=== PATIENT | female | born 1955 | race Caucasian/White ===

== ENCOUNTER 2020-01-25 12:00 | Day surgery (SDC) | payer BC ==
[2020-01-24 15:34] LABS: BASOPHILS % (AUTO) 0.6 % (0-1); EOSINOPHILS # (AUTO) 0.1 X10'3 (0-0.9); EOSINOPHILS % (AUTO) 2.1 % (0-6); LYMPHOCYTES # (AUTO) 1.5 X10'3 (1.1-4.8); LYMPHOCYTES % (AUTO) 25.8 % (21-51); MEAN CORPUSCULAR HEMOGLOBIN 27.7 PG (27.0-31.0); MEAN CORPUSCULAR HGB CONC 32.9 g/dL (33.0-36.5); MEAN CORPUSCULAR VOLUME 84.2 FL (78-98); MEAN PLATELET VOLUME 7.6 FL (7.4-10.4); MONOCYTES # (AUTO) 0.4 X10'3 (0-0.9); MONOCYTES % (AUTO) 6.6 % (2-12); NEUTROPHILS # (AUTO) 3.8 X10'3 (1.8-7.7); NEUTROPHILS % (AUTO) 64.9 % (42-75); PRE OP HEMATOCRIT 38.4 % (35.0-45.0); PRE OP HEMOGLOBIN 12.7 g/dL (12.0-16.0); PRE OP PLATELET COUNT 340 X10'3 (140-440); RED BLOOD COUNT 4.56 X10'6 (4.20-5.60); RED CELL DISTRIBUTION WIDTH 14.3 % (11.5-14.5)
[2020-01-24 15:38] LABS: ALBUMIN 3.6 G/DL (3.4-5.0); ALBUMIN/GLOBULIN RATIO 0.9 (1.1-1.5); ALKALINE PHOSPHATASE 73 IU/L (46-116); BLOOD UREA NITROGEN 20 MG/DL (7-18); BUN/CREATININE RATIO 29.9 (6.6-38.0); CALCIUM 9.2 MG/DL (8.5-10.1); CHLORIDE 105 MMOL/L (99-107); CREATININE 0.67 MG/DL (0.40-0.90); PRE OP ALT 25 U/L (30-65); PRE OP ANION GAP 6 (8-16); PRE OP AST 19 U/L (10-37); PRE OP BILIRUB, TOTAL 0.5 MG/DL (0.0-1.0); PRE OP GLUCOSE 124 MG/DL (70-104); PRE OP POTASSIUM 3.8 MMOL/L (3.4-5.1); PRE OP SODIUM 142 MMOL/L (135-145); TOTAL CARBON DIOXIDE 30.9 MMOL/L (24-32); TOTAL PROTEIN 7.7 G/DL (6.4-8.2); eGFR 89 ML/MIN
[~2020-01-25] VITALS: Ht 165.1 cm; Wt 72.6 kg
[2020-01-25] VITALS (11 sets, daily range): BP systolic 126–170; BP diastolic 82–100
[~2020-01-25 12:00] MED LIST: HYDR-4383 PO; IBUP-1985 PO; ceFAZolin 1GM/D5W- ADD-VANTAGE 50 ML IV ONE; famotidine 20mg tablet PO ONE; ringers solution, lacted 1,000 ML IV SCH
[2020-01-25] MEDS ORDERED: BUPIVAcaine/PF 2.5 mg/ml (0.25%) 30ml vial ONE (15:15)
[2020-01-25] MEDS ORDERED: cloNIDine hcl/PF 100mcg/ml inj ONE (16:06)
[2020-01-25] MEDS ORDERED: propofol inj 20 ML IV ONE (16:08)
[2020-01-25] MEDS ORDERED: midazolam 2 mg/2 ml injection ONE ×2 (16:08)
[2020-01-25] MEDS ORDERED: fentaNYL/PF 50MCG/1 ML 2ML syringe ONE (16:08)
[2020-01-25] MEDS ORDERED: ROPIVAcaine 0.5% (5mg/ml) 30ml vial ONE (16:10)
[2020-01-25] MEDS ORDERED: sevoflurane 250ml liquid IH ONE (16:12)
[2020-01-25] MEDS ORDERED: proCHLORperazine 10 MG/2 ml inj IV PRN (16:15)
[2020-01-25] MEDS ORDERED: meperidine/PF 25mg/ml syringe IV PRN ×3 (16:15)
[2020-01-25] MEDS ORDERED: ondansetron/PF 4mg/2ml inj IV PRN (16:15)
[2020-01-25] MEDS ORDERED: morphine 4 MG/ML inj SYRINge IV PRN (16:15)
[2020-01-25] MEDS ORDERED: morphine 2 MG/ML inj. syringe IV PRN (16:15)
[2020-01-25] MEDS ORDERED: ringers solution, lacted 1,000 ML IV SCH (16:15)
[2020-01-25] MEDS ORDERED: ondansetron/PF 4mg/2ml inj ONE (18:04)
[2020-01-25] MEDS ORDERED: dexamethasone sod phosphate 4mg/ml inj. ONE (18:04)
--- NOTE | 2020-01-25 18:21 | NUR ---
Received from OR via [facility], accompanied by Anesthesiologist DR JADE and report given by Anesthesiologist. PT DROWSY, DENIES PAIN, LEFT SHOULDER W/ISLAND DRSG COVERING INCISION CDI, LEFT ARM IN SLING. Addendum: 01/25/20 at 1829 by Malathi Rucker RN Amended: Links added.
[2020-01-25] MEDS ORDERED: HYDROcodone/acetaminophen 10/325mg tab PO PRN (18:25)
--- NOTE | 2020-01-25 20:11 | NUR ---
D/C INSTRUCTIONS GIVEN TO AND GONE OVER W/PT WHO VERBALIZED UNDERSTANDING, PT D/CD TO HOME VIA W/C TO PRIVATE VEHICLE W/O INCIDENT. Addendum: 01/25/20 at 2021 by Malathi Rucker RN Amended: Links added.
== END 2020-01-25 20:11 | disposition home or self-care (01) ==
LOC: PAS 12:00
PROVIDERS: ATTEND Orthopaedic Surgery
DX: T84.84XA Pain due to internal orthopedic prosthetic devices, implants and grafts, initial encounter (principal); M25.612 Stiffness of left shoulder, not elsewhere classified; Z98.890 Other specified postprocedural states; Z87.891 Personal history of nicotine dependence; G89.18 Other acute postprocedural pain; Z79.899 Other long term (current) drug therapy; Z72.89 Other problems related to lifestyle
CPT/HCPCS: 20680; 29823; 36415; 64415; 73060; 76000; 76942; 80053; 82948; 85025; 93005; J0690; J0735; J1100; J2250; J2405; J2704; J3010; J3490; J7120; A4565; A4618; A6449; A7000; J2795

== ENCOUNTER 2020-01-30 10:46 | Emergency (ER) | payer BC ==
[~2020-01-30] VITALS: Ht 165.1 cm; Wt 71.6 kg
[~2020-01-30 10:46] MED LIST changes: -ceFAZolin 1GM/D5W- ADD-VANTAGE 50 ML IV ONE; -famotidine 20mg tablet PO ONE; -ringers solution, lacted 1,000 ML IV SCH
[2020-01-30 11:37] LABS: BASOPHILS % (AUTO) 0.4 % (0-1); EOSINOPHILS # (AUTO) 0.1 X10'3 (0-0.9); HEMOGLOBIN 12.6 g/dl (12.0-16.0); LYMPHOCYTES # (AUTO) 1.3 X10'3 (1.1-4.8); LYMPHOCYTES % (AUTO) 16.7 % (21-51); MEAN CORPUSCULAR HEMOGLOBIN 27.8 PG (27.0-31.0); MEAN CORPUSCULAR HGB CONC 33.2 g/dL (33.0-36.5); MEAN CORPUSCULAR VOLUME 83.7 FL (78-98); MEAN PLATELET VOLUME 6.8 FL (7.4-10.4); MONOCYTES # (AUTO) 0.5 X10'3 (0-0.9); MONOCYTES % (AUTO) 6.2 % (2-12); NEUTROPHILS % (AUTO) 75.7 % (42-75); PLATELET COUNT 412 X10'3 (140-440); RED BLOOD COUNT 4.55 X10'6 (4.20-5.60); RED CELL DISTRIBUTION WIDTH 13.7 % (11.5-14.5); WHITE BLOOD COUNT 7.9 X10'3 (4.5-11.0)
[2020-01-30 11:51] LABS: ALANINE AMINOTRANSFERASE 23 U/L (12-78); ALBUMIN 3.2 G/DL (3.4-5.0); ALBUMIN/GLOBULIN RATIO 0.7 (1.1-1.5); ALKALINE PHOSPHATASE 73 IU/L (46-116); ANION GAP 10 (8-16); ASPARTATE AMINO TRANSFERASE 14 U/L (10-37); BILIRUBIN,TOTAL 0.6 MG/DL (0.1-1.0); BLOOD UREA NITROGEN 15 MG/DL (7-18); BUN/CREATININE RATIO 16.1 (6.6-38.0); CALCIUM 9.3 MG/DL (8.5-10.1); CHLORIDE 103 MMOL/L (99-107); CREATININE 0.93 MG/DL (0.40-0.90); GLUCOSE 172 MG/DL (70-104); POTASSIUM 3.4 MMOL/L (3.5-5.1); SODIUM 141 MMOL/L (135-145); TOTAL CARBON DIOXIDE 28.1 MMOL/L (24-32); TOTAL PROTEIN 7.7 G/DL (6.4-8.2); eGFR 61 ML/MIN
[2020-01-30] MEDS ORDERED: vancomycin/NS 1 GM ADD-VANTAGE 250 ML IV ONE (12:30)
[2020-01-30] MEDS ORDERED: SULF1TAB49 PO (12:31)
[2020-01-30 14:33] VITALS: BP 130/80
== END 2020-01-30 14:38 | disposition home or self-care (01) ==
LOC: ER 10:47
DX: T81.41XA Infection following a procedure, superficial incisional surgical site, initial encounter (principal); Z98.890 Other specified postprocedural states; Z79.2 Long term (current) use of antibiotics; Z79.899 Other long term (current) drug therapy; Y83.9 Surgical procedure, unspecified as the cause of abnormal reaction of the patient, or of later complication, without mention of misadventure at the time of the procedure; Y92.89 Other specified places as the place of occurrence of the external cause
CPT/HCPCS: 36415; 80053; 85025; 87070; 96365; 96366; 99284; J3370

== ENCOUNTER 2020-05-16 08:32 | Inpatient (IN) | payer BC ==
[~2020-05-16] VITALS: Ht 165.1 cm; Wt 72.9 kg
[2020-05-16] VITALS (24 sets, daily range): BP systolic 125–174; BP diastolic 63–99
[2020-05-16] MEDS ORDERED: famotidine 20mg tablet PO ONE (09:25)
[2020-05-16] MEDS ORDERED: ringers solution, lacted 1,000 ML IV SCH ×2 (09:25→11:05)
[2020-05-16 10:07] LABS: BASOPHILS % (AUTO) 0.5 % (0-1); EOSINOPHILS # (AUTO) 0.1 X10'3 (0-0.9); EOSINOPHILS % (AUTO) 1.7 % (0-6); HEMATOCRIT 40.7 % (35.0-45.0); HEMOGLOBIN 13.8 g/dl (12.0-16.0); LYMPHOCYTES # (AUTO) 1.3 X10'3 (1.1-4.8); LYMPHOCYTES % (AUTO) 21.5 % (21-51); MEAN CORPUSCULAR HEMOGLOBIN 28.2 PG (27.0-31.0); MEAN CORPUSCULAR HGB CONC 33.9 g/dL (33.0-36.5); MEAN CORPUSCULAR VOLUME 83.1 FL (78-98); MEAN PLATELET VOLUME 7.1 FL (7.4-10.4); MONOCYTES # (AUTO) 0.4 X10'3 (0-0.9); MONOCYTES % (AUTO) 6.4 % (2-12); NEUTROPHILS # (AUTO) 4.4 X10'3 (1.8-7.7); NEUTROPHILS % (AUTO) 69.9 % (42-75); PLATELET COUNT 359 X10'3 (140-440); RED CELL DISTRIBUTION WIDTH 13.5 % (11.5-14.5); WHITE BLOOD COUNT 6.3 X10'3 (4.5-11.0)
[2020-05-16] MEDS ORDERED: cloNIDine hcl/PF 100mcg/ml inj ONE (10:08)
[2020-05-16] MEDS ORDERED: fentaNYL/PF 50MCG/1 ML 2ML syringe ONE (10:13)
[2020-05-16] MEDS ORDERED: sevoflurane 250ml liquid IH ONE (10:15)
[2020-05-16] MEDS ORDERED: midazolam 2 mg/2 ml injection ONE (10:18)
[2020-05-16] MEDS ORDERED: LIDOcaine 2% 5ml jelly ONE (10:18)
[2020-05-16 10:32] LABS: ALANINE AMINOTRANSFERASE 28 U/L (12-78); ALBUMIN 3.7 G/DL (3.4-5.0); ALBUMIN/GLOBULIN RATIO 0.8 (1.1-1.5); ALKALINE PHOSPHATASE 104 IU/L (46-116); ANION GAP 9 (8-16); ASPARTATE AMINO TRANSFERASE 22 U/L (10-37); BILIRUBIN,TOTAL 0.5 MG/DL (0.1-1.0); BLOOD UREA NITROGEN 17 MG/DL (7-18); BUN/CREATININE RATIO 24.6 (6.6-38.0); C-REACTIVE PROTEIN 2.25 MG/DL (0.0-0.5); CALCIUM 9.7 MG/DL (8.5-10.1); CHLORIDE 105 MMOL/L (99-107); CREATININE 0.69 MG/DL (0.40-0.90); GLUCOSE 107 MG/DL (70-104); POTASSIUM 3.7 MMOL/L (3.5-5.1); SODIUM 142 MMOL/L (135-145); TOTAL CARBON DIOXIDE 28.5 MMOL/L (24-32); TOTAL PROTEIN 8.2 G/DL (6.4-8.2); eGFR 86 ML/MIN
[2020-05-16] MEDS ORDERED: dexamethasone sod phosphate 4mg/ml inj. ONE (10:53)
[2020-05-16] MEDS ORDERED: ondansetron/PF 4mg/2ml inj ONE (10:53)
[2020-05-16] MEDS ORDERED: LIDOcaine 2% (20mg/ml) 5ml vial ONE (10:53)
[2020-05-16] MEDS ORDERED: rocuronium 10mg/ml inj IV ONE (10:53)
[2020-05-16] MEDS ORDERED: LIDOcaine 1%/PF 5ML 10 MG/ML VIAL ONE (10:53)
[2020-05-16] MEDS ORDERED: ROPIVAcaine 0.5% (5mg/ml) 30ml vial ONE (10:53)
[2020-05-16] MEDS ORDERED: 0.9 % SODIUM CHLORIDE 10 ML VIAL ONE (10:53)
[2020-05-16] MEDS ORDERED: ePHEDrine 50MG/ML INJ. ONE (10:53)
[2020-05-16] MEDS ORDERED: propofol inj 20 ML IV ONE (10:53)
[2020-05-16] MEDS ORDERED: ceFAZolin 1000mg inj ONE ×2 (11:03)
[2020-05-16] MEDS ORDERED: vancomycin 1,000mg inj ONE (11:03)
[2020-05-16] MEDS ORDERED: meperidine/PF 25mg/ml syringe IV PRN ×3 (11:05)
[2020-05-16] MEDS ORDERED: ondansetron/PF 4mg/2ml inj IV PRN ×2 (11:05→12:35)
[2020-05-16] MEDS ORDERED: morphine 4 MG/ML inj SYRINge IV PRN (11:05)
[2020-05-16] MEDS ORDERED: acetaminophen 1,000mg/100ml IV 100 ML IV PRN (11:05)
[2020-05-16] MEDS ORDERED: proCHLORperazine 10 MG/2 ml inj IV PRN (11:05)
[2020-05-16] MEDS ORDERED: morphine 2 MG/ML inj. syringe IV PRN (11:05)
[2020-05-16] MEDS ORDERED: glycopyrrolate 0.2mg/ml inj ONE (11:46)
[2020-05-16] MEDS ORDERED: neostigmine methylsulfate 1 MG/ML 10ml vial ONE (11:46)
--- NOTE | 2020-05-16 12:01 | NUR ---
Received from OR via BED, accompanied by Anesthesiologist DR SHIPMAN and report given by Anesthesiologist. PT DROWSY, DENIES PAIN, LEFT SHOULDER W/DRSG, CDI, SHOULDER WRAP, WOUND VAC W/SETTINGS 125MMHG LCS W/ S/S DRAINAGE IN TUBING. Addendum: 05/16/20 at 1408 by Malathi Rucker RN Amended: Links added.
[2020-05-16] MEDS ORDERED: diphenhydrAMINE 25mg capsule PO PRN ×2 (12:35)
[2020-05-16] MEDS ORDERED: tranexamic acid inj. 730 MG in normal saline 100ml IV soln 100 ML IV ONE ×2 (12:35→15:50)
[2020-05-16] MEDS ORDERED: HYDROmorphone 1 mg/ml syringe IV PRN (12:35)
[2020-05-16] MEDS ORDERED: bisacodyl 10mg suppository rectal RC PRN (12:35)
[2020-05-16] MEDS ORDERED: acetaminophen 325mg tablet PO PRN (12:35)
[2020-05-16] MEDS ORDERED: HYDROmorphone inj. 0.5 MG/0.5 ML DISP.SYRIN IV PRN (12:35)
[2020-05-16] MEDS ORDERED: magnesium hydroxide 30ml (MOM) UD suspension PO PRN (12:35)
[2020-05-16] MEDS: acetaminophen 325mg tablet PO SCH ×2 (14:00→20:01)
--- NOTE | 2020-05-16 14:21 | NUR ---
Report called to receiving nurse. Transferred via BED, 2 BAGS OF PERSONAL Belongings SENT W/PT TO ROOM 345B, RECEIVING RN AT BEDSIDE TO RECEIVE PT. Special Issues communicated to receiving nurse. YES. Addendum: 05/16/20 at 1430 by Malathi Rucker RN Amended: Links added.
--- NOTE | 2020-05-16 15:49 | NUR ---
Called Dr Menjivar and he does not want patient to receive tranexamic acid dose. Also, received orders for Wound Vac to be 125mmHg settings.
[2020-05-16] MEDS: ceFAZolin/D5W- 1GM premix 50 ML IV SCH (16:14)
--- NOTE | 2020-05-16 18:21 | NUR ---
Problems reprioritized. Patient report given, questions answered & plan of care reviewed with Luca SMITH.
[2020-05-16] MEDS: sennosides 8.6mg tablet PO SCH (20:00)
[2020-05-16] MEDS: potassium cl 20mEq in 1/2 NS 1,000 ML IV SCH ×2 (20:02→20:35)
[2020-05-16] MEDS: vancomycin/NS 1 GM ADD-VANTAGE 250 ML IV SCH (22:21)
[2020-05-17 00:07] VITALS: BP 120/71
[2020-05-17] MEDS: ceFAZolin/D5W- 1GM premix 50 ML IV SCH ×2 (00:47→08:15)
[2020-05-17] MEDS: acetaminophen 325mg tablet PO SCH ×4 (03:54→19:46)
[2020-05-17 04:00] VITALS: BP 125/68
[2020-05-17] MEDS: potassium cl 20mEq in 1/2 NS 1,000 ML IV SCH (04:35)
[2020-05-17 06:10] LABS: BASOPHILS % (AUTO) 0.1 % (0-1); EOSINOPHILS % (AUTO) 0 % (0-6); HEMATOCRIT 37.1 % (35.0-45.0); HEMOGLOBIN 12.4 g/dl (12.0-16.0); LYMPHOCYTES # (AUTO) 0.9 X10'3 (1.1-4.8); LYMPHOCYTES % (AUTO) 10.8 % (21-51); MEAN CORPUSCULAR HEMOGLOBIN 27.7 PG (27.0-31.0); MEAN CORPUSCULAR HGB CONC 33.3 g/dL (33.0-36.5); MEAN CORPUSCULAR VOLUME 83.1 FL (78-98); MEAN PLATELET VOLUME 7.1 FL (7.4-10.4); MONOCYTES # (AUTO) 0.3 X10'3 (0-0.9); MONOCYTES % (AUTO) 4.1 % (2-12); NEUTROPHILS # (AUTO) 6.8 X10'3 (1.8-7.7); PLATELET COUNT 374 X10'3 (140-440); RED BLOOD COUNT 4.46 X10'6 (4.20-5.60); RED CELL DISTRIBUTION WIDTH 13.6 % (11.5-14.5)
[2020-05-17 06:26] LABS: ANION GAP 9 (8-16); CHLORIDE 106 MMOL/L (99-107); POTASSIUM 4.4 MMOL/L (3.5-5.1); SODIUM 142 MMOL/L (135-145); TOTAL CARBON DIOXIDE 27.2 MMOL/L (24-32)
--- NOTE | 2020-05-17 06:32 | NUR ---
reported to days. noted pt's iv needs to be replaced. no pain noted. pt can wiggle and feel fingers.
[2020-05-17 07:00] VITALS: BP 124/66
[2020-05-17] MEDS: oxyCODONE IR 5mg (immed. release) tablet PO PRN ×3 (08:26→19:45)
[2020-05-17 09:46] LABS: ALANINE AMINOTRANSFERASE 22 U/L (12-78); ALBUMIN 3.2 G/DL (3.4-5.0); ALBUMIN/GLOBULIN RATIO 0.8 (1.1-1.5); ALKALINE PHOSPHATASE 89 IU/L (46-116); ASPARTATE AMINO TRANSFERASE 20 U/L (10-37); BILIRUBIN,TOTAL 0.7 MG/DL (0.1-1.0); BLOOD UREA NITROGEN 12 MG/DL (7-18); BUN/CREATININE RATIO 15.6 (6.6-38.0); CALCIUM 9.1 MG/DL (8.5-10.1); CREATININE 0.77 MG/DL (0.40-0.90); GLUCOSE 149 MG/DL (70-104); TOTAL PROTEIN 7.1 G/DL (6.4-8.2); eGFR 76 ML/MIN
--- NOTE | 2020-05-17 11:27 | NUR ---
PICC LINE INFORMATION: REF: [id number] LOT: [id number] EXP: 01/30/2021 NOTIFIED RN AND LAB OF LINE PLACEMENT
[2020-05-17 12:00] VITALS: BP 148/76
[2020-05-17] MEDS: vancomycin/NS 1 GM ADD-VANTAGE 250 ML IV SCH ×2 (14:51→23:26)
--- NOTE | 2020-05-17 15:27 | NUR ---
Pt admit DX L humerus osteomyelitis s/p debridement w/ vac; plans to return to OR tomorrow per pt during RD visit today. PO 100% first regular meal last night w/ 50% breakfast this morning; reports good appetite at this time. Pt seen by RD for written/verbal high protein ed w/ RD contact information provided. Pt is agreeable to traci-yadira PATEL; notified. Addendum: 05/17/20 at [address] Amended: Links added.
[2020-05-17] MEDS: CefTRIAXone 2gm/D5W 50ml BAG 50 ML IV SCH (17:45)
[2020-05-17 19:28] VITALS: BP 136/66
[2020-05-17] MEDS: lactobacillus rhamnosus 10,000 MMU CELLS/CAPSULE PO SCH (19:46)
[2020-05-17] MEDS: sennosides 8.6mg tablet PO SCH (21:10)
[2020-05-17] MEDS ORDERED: VANCOMYCIN LEVEL IV ONE (22:30)
[2020-05-17 23:09] VITALS: BP 122/62
[2020-05-18] VITALS (17 sets, daily range): BP systolic 116–153; BP diastolic 67–98
[2020-05-18] MEDS: acetaminophen 325mg tablet PO SCH ×2 (03:00→07:57)
[2020-05-18] MEDS: oxyCODONE IR 5mg (immed. release) tablet PO PRN (03:35)
--- NOTE | 2020-05-18 06:30 | NUR ---
Patient in room [facility]. I have received report from Ap SMITH and had the opportunity to ask questions and assume patient care.
[2020-05-18 06:38] LABS: BASOPHILS % (AUTO) 0.5 % (0-1); EOSINOPHILS # (AUTO) 0.1 X10'3 (0-0.9); EOSINOPHILS % (AUTO) 1.2 % (0-6); LYMPHOCYTES # (AUTO) 2.3 X10'3 (1.1-4.8); LYMPHOCYTES % (AUTO) 31.8 % (21-51); MEAN CORPUSCULAR HEMOGLOBIN 27.8 PG (27.0-31.0); MEAN CORPUSCULAR HGB CONC 33.3 g/dL (33.0-36.5); MEAN CORPUSCULAR VOLUME 83.2 FL (78-98); MEAN PLATELET VOLUME 7.4 FL (7.4-10.4); MONOCYTES # (AUTO) 0.4 X10'3 (0-0.9); MONOCYTES % (AUTO) 6.2 % (2-12); NEUTROPHILS # (AUTO) 4.3 X10'3 (1.8-7.7); NEUTROPHILS % (AUTO) 60.3 % (42-75); PLATELET COUNT 318 X10'3 (140-440); RED BLOOD COUNT 3.97 X10'6 (4.20-5.60); RED CELL DISTRIBUTION WIDTH 13.2 % (11.5-14.5); WHITE BLOOD COUNT 7.2 X10'3 (4.5-11.0)
[2020-05-18 06:56] LABS: ALANINE AMINOTRANSFERASE 19 U/L (12-78); ALBUMIN 2.8 G/DL (3.4-5.0); ALBUMIN/GLOBULIN RATIO 0.8 (1.1-1.5); ALKALINE PHOSPHATASE 73 IU/L (46-116); ANION GAP 6 (8-16); ASPARTATE AMINO TRANSFERASE 15 U/L (10-37); BILIRUBIN,TOTAL 0.4 MG/DL (0.1-1.0); BLOOD UREA NITROGEN 18 MG/DL (7-18); BUN/CREATININE RATIO 26.1 (6.6-38.0); CALCIUM 8.5 MG/DL (8.5-10.1); CHLORIDE 109 MMOL/L (99-107); CREATININE 0.69 MG/DL (0.40-0.90); GLUCOSE 96 MG/DL (70-104); POTASSIUM 3.6 MMOL/L (3.5-5.1); SODIUM 144 MMOL/L (135-145); TOTAL CARBON DIOXIDE 29.5 MMOL/L (24-32); TOTAL PROTEIN 6.3 G/DL (6.4-8.2); eGFR 86 ML/MIN
[2020-05-18] MEDS: lactobacillus rhamnosus 10,000 MMU CELLS/CAPSULE PO SCH ×2 (07:56→19:45)
[2020-05-18] MEDS: CefTRIAXone 2gm/D5W 50ml BAG 50 ML IV SCH (07:57)
[2020-05-18] MEDS: VANCOmycin 1250MG/NS 250ml Bag 250 ML IV SCH ×2 (11:17→23:12)
[2020-05-18] MEDS ORDERED: sevoflurane 250ml liquid IH ONE (12:36)
[2020-05-18] MEDS ORDERED: fentaNYL/PF 50MCG/1 ML 2ML syringe ONE ×2 (12:56→13:54)
[2020-05-18] MEDS ORDERED: LIDOcaine 2% (20mg/ml) 5ml vial ONE (12:56)
[2020-05-18] MEDS ORDERED: propofol inj 20 ML IV ONE (12:56)
[2020-05-18] MEDS ORDERED: dexamethasone sod phosphate 4mg/ml inj. ONE (12:56)
[2020-05-18] MEDS ORDERED: ondansetron/PF 4mg/2ml inj ONE (12:56)
[2020-05-18] MEDS ORDERED: ondansetron/PF 4mg/2ml inj IV PRN (13:10)
[2020-05-18] MEDS ORDERED: ringers solution, lacted 1,000 ML IV SCH (13:10)
[2020-05-18] MEDS ORDERED: morphine 4 MG/ML inj SYRINge IV PRN (13:10)
[2020-05-18] MEDS ORDERED: fentaNYL/PF 50MCG/1 ML 2ML syringe IV PRN ×2 (13:10)
[2020-05-18] MEDS ORDERED: labetalol 20mg/4ml (5mg/ml) syringe IV PRN (13:10)
[2020-05-18] MEDS ORDERED: hydrALAZINE 20mg/ml inj. IV PRN (13:10)
[2020-05-18] MEDS ORDERED: morphine 2 MG/ML inj. syringe IV PRN (13:10)
[2020-05-18] MEDS ORDERED: vancomycin 1,000mg inj ONE (13:21)
[2020-05-18] MEDS ORDERED: ketorolac trometh. 30mg/ml inj. ONE (13:51)
[2020-05-18] MEDS ORDERED: morphine 10mg/ml inj. ONE (14:34)
--- NOTE | 2020-05-18 14:52 | NUR ---
FROM OR ON BED WITH DR CIFUENTES AT SIDE. VSS. IV TO RT UPPER ARM IS A PICC LINE ABD THE SITE IS CLEAR. LEFT FINGERS MOVE WELL. PULSE IS PALPABLE AND FINGERS ARE WARM WITH BRISK CAP REFILL. DSG CDI TO LEFT ARM. EXTERNAL FIXATOR PRESENT WITH ELIJAH DRAIN. SLIGHTLY BLOODY DRAINAGE AND HOLDING A CHARGE WELL. NO RESP DISTRESS AND NO CO PAIN. Addendum: 05/18/20 at 1517 by Kari Bhatti RN Amended: Links added.
--- NOTE | 2020-05-18 15:42 | NUR ---
REPORT TO [place] ON SURGICAL FLOOR. PT CONTINUES TO DO WELL. NO PAIN, VSS, IV PATENT. DSG CDI. FINGERS WARM, MOVE WELL, BRISK CAP REFILL.
--- NOTE | 2020-05-18 15:52 | NUR ---
TRANSPORTED TO SURGICAL FLOOR WITHOUT INCIDENT. VSS, IV CLEAR. NO PAIN, CIRC CHECKS THE SAME TO LEFT HAND. ELIJAH NOT EMPTIED. DC'D WOUND VAC SENT TO FLOOR WITH PT.
--- NOTE | 2020-05-18 18:33 | NUR ---
Problems reprioritized. Patient report given, questions answered & plan of care reviewed with Kay SMITH.
[2020-05-18] MEDS: sennosides 8.6mg tablet PO SCH (19:45)
[2020-05-19] VITALS: BP 134/71
[2020-05-19] MEDS: oxyCODONE IR 5mg (immed. release) tablet PO PRN ×4 (03:52→18:11)
[2020-05-19 04:00] VITALS: BP 143/63
[2020-05-19 05:50] LABS: BASOPHILS % (AUTO) 0.3 % (0-1); EOSINOPHILS % (AUTO) 0.1 % (0-6); HEMATOCRIT 32.6 % (35.0-45.0); HEMOGLOBIN 10.9 g/dl (12.0-16.0); LYMPHOCYTES # (AUTO) 1.4 X10'3 (1.1-4.8); LYMPHOCYTES % (AUTO) 15.5 % (21-51); MEAN CORPUSCULAR HGB CONC 33.4 g/dL (33.0-36.5); MEAN PLATELET VOLUME 7.7 FL (7.4-10.4); MONOCYTES # (AUTO) 0.6 X10'3 (0-0.9); MONOCYTES % (AUTO) 7.4 % (2-12); NEUTROPHILS # (AUTO) 6.8 X10'3 (1.8-7.7); NEUTROPHILS % (AUTO) 76.7 % (42-75); PLATELET COUNT 299 X10'3 (140-440); RED BLOOD COUNT 3.88 X10'6 (4.20-5.60); RED CELL DISTRIBUTION WIDTH 13.3 % (11.5-14.5); WHITE BLOOD COUNT 8.8 X10'3 (4.5-11.0)
[2020-05-19 06:01] LABS: ALANINE AMINOTRANSFERASE 27 U/L (12-78); ALBUMIN 2.7 G/DL (3.4-5.0); ALBUMIN/GLOBULIN RATIO 0.8 (1.1-1.5); ALKALINE PHOSPHATASE 72 IU/L (46-116); ANION GAP 7 (8-16); ASPARTATE AMINO TRANSFERASE 22 U/L (10-37); BILIRUBIN,TOTAL 0.4 MG/DL (0.1-1.0); BLOOD UREA NITROGEN 17 MG/DL (7-18); BUN/CREATININE RATIO 22.7 (6.6-38.0); CALCIUM 8.9 MG/DL (8.5-10.1); CHLORIDE 106 MMOL/L (99-107); CREATININE 0.75 MG/DL (0.40-0.90); GLUCOSE 119 MG/DL (70-104); POTASSIUM 3.9 MMOL/L (3.5-5.1); SODIUM 142 MMOL/L (135-145); TOTAL CARBON DIOXIDE 28.8 MMOL/L (24-32); TOTAL PROTEIN 6.1 G/DL (6.4-8.2); eGFR 78 ML/MIN
--- NOTE | 2020-05-19 06:12 | NUR ---
Problems reprioritized. Patient report given, questions answered & plan of care reviewed with SARAH Mcnair.
[2020-05-19 08:00] VITALS: BP 123/70
[2020-05-19] MEDS: lactobacillus rhamnosus 10,000 MMU CELLS/CAPSULE PO SCH ×2 (08:03→19:10)
[2020-05-19] MEDS: CefTRIAXone 2gm/D5W 50ml BAG 50 ML IV SCH (08:04)
[2020-05-19] MEDS: ibuprofen 200mg tablet PO PRN (08:04)
[2020-05-19 11:00] VITALS: BP 152/66
[2020-05-19] MEDS: VANCOmycin 1250MG/NS 250ml Bag 250 ML IV SCH ×2 (11:48→23:30)
[2020-05-19] MEDS: acetaminophen 325mg tablet PO PRN ×2 (11:48→18:12)
[2020-05-19] MEDS: sennosides 8.6mg tablet PO SCH (19:11)
[2020-05-19 19:30] VITALS: BP 153/75
[2020-05-19] MEDS ORDERED: VANCOMYCIN LEVEL IV ONE (22:30)
[2020-05-20] MEDS: oxyCODONE IR 5mg (immed. release) tablet PO PRN ×4 (00:50→17:19)
[2020-05-20] MEDS: acetaminophen 325mg tablet PO PRN ×2 (04:08→17:25)
--- NOTE | 2020-05-20 06:30 | NUR ---
Patient in room [facility]. I have received report from SARAH Juarez and had the opportunity to ask questions and assume patient care.
--- NOTE | 2020-05-20 06:36 | NUR ---
Problems reprioritized. Patient report given, questions answered & plan of care reviewed with Vicky SMITH. Addendum: 05/20/20 at 0637 by Ann Johnston RN Amended: Links added.
[2020-05-20 07:18] LABS: ALANINE AMINOTRANSFERASE 41 U/L (12-78); ALBUMIN 2.7 G/DL (3.4-5.0); ALBUMIN/GLOBULIN RATIO 0.8 (1.1-1.5); ALKALINE PHOSPHATASE 70 IU/L (46-116); ANION GAP 7 (8-16); ASPARTATE AMINO TRANSFERASE 26 U/L (10-37); BILIRUBIN,TOTAL 0.4 MG/DL (0.1-1.0); BLOOD UREA NITROGEN 14 MG/DL (7-18); BUN/CREATININE RATIO 21.5 (6.6-38.0); CALCIUM 8.6 MG/DL (8.5-10.1); CHLORIDE 109 MMOL/L (99-107); CREATININE 0.65 MG/DL (0.40-0.90); GLUCOSE 92 MG/DL (70-104); POTASSIUM 3.7 MMOL/L (3.5-5.1); SODIUM 144 MMOL/L (135-145); TOTAL CARBON DIOXIDE 28.1 MMOL/L (24-32); eGFR > 90 ML/MIN
[2020-05-20 07:54] VITALS: BP 124/73
[2020-05-20] MEDS: CefTRIAXone 2gm/D5W 50ml BAG 50 ML IV SCH (08:03)
[2020-05-20] MEDS: lactobacillus rhamnosus 10,000 MMU CELLS/CAPSULE PO SCH ×2 (08:03→20:54)
[2020-05-20] MEDS: VANCOmycin 1250MG/NS 250ml Bag 250 ML IV SCH ×2 (11:21→23:18)
[2020-05-20 12:00] VITALS: BP 154/79
--- NOTE | 2020-05-20 18:13 | NUR ---
Problems reprioritized. Patient report given, questions answered & plan of care reviewed with SARAH Juarez.
[2020-05-20 20:00] VITALS: BP 136/72
[2020-05-20] MEDS: ibuprofen 200mg tablet PO PRN (20:54)
[2020-05-20] MEDS: sennosides 8.6mg tablet PO SCH (20:54)
[2020-05-21] VITALS: BP 145/65
--- NOTE | 2020-05-21 06:45 | NUR ---
Problems reprioritized. Patient report given, questions answered & plan of care reviewed with Lianne SMITH.
--- NOTE | 2020-05-21 06:46 | NUR ---
Problems reprioritized. Patient report given, questions answered & plan of care reviewed with Lianne Wick. Addendum: 05/21/20 at 0650 by Ann Johnston RN Amended: Links added.
--- NOTE | 2020-05-21 06:59 | NUR ---
Patient in room [facility]. I have received report from Ann SMITH and had the opportunity to ask questions and assume patient care.
[2020-05-21 07:08] LABS: ALANINE AMINOTRANSFERASE 35 U/L (12-78); ALBUMIN 2.8 G/DL (3.4-5.0); ALBUMIN/GLOBULIN RATIO 0.8 (1.1-1.5); ALKALINE PHOSPHATASE 73 IU/L (46-116); ANION GAP 5 (8-16); ASPARTATE AMINO TRANSFERASE 20 U/L (10-37); BILIRUBIN,TOTAL 0.4 MG/DL (0.1-1.0); BLOOD UREA NITROGEN 12 MG/DL (7-18); CALCIUM 8.8 MG/DL (8.5-10.1); CHLORIDE 109 MMOL/L (99-107); CREATININE 0.63 MG/DL (0.40-0.90); GLUCOSE 93 MG/DL (70-104); POTASSIUM 3.7 MMOL/L (3.5-5.1); SODIUM 143 MMOL/L (135-145); TOTAL CARBON DIOXIDE 29.4 MMOL/L (24-32); TOTAL PROTEIN 6.4 G/DL (6.4-8.2); eGFR > 90 ML/MIN
[2020-05-21 08:00] VITALS: BP 139/73
[2020-05-21] MEDS: lactobacillus rhamnosus 10,000 MMU CELLS/CAPSULE PO SCH ×2 (08:46→20:27)
[2020-05-21] MEDS: CefTRIAXone 2gm/D5W 50ml BAG 50 ML IV SCH (08:46)
[2020-05-21 12:00] VITALS: BP 143/70
[2020-05-21] MEDS: VANCOmycin 1250MG/NS 250ml Bag 250 ML IV SCH ×2 (12:21→22:57)
--- NOTE | 2020-05-21 13:42 | NUR ---
initial: 75-100% PO intake reports good appetite. Pt admit dx L humerus osteomyelitis s/p debridement; s/p debridement 05/18. Recommend: 1. continue regular diet 2. bowel care as needed 3. wt per rx Addendum: 05/21/20 at [address] Amended: Links added.
[2020-05-21] MEDS: ibuprofen 200mg tablet PO PRN (15:29)
--- NOTE | 2020-05-21 15:39 | NUR ---
Called Dr Gleason regarding wound care orders for pt's hardware and pt's complain of right foot pain. Left a message on his cell phone and waited to get orders. NO response. Charge nurse aware of events. recommended to call answering services to get a hold of him. Pt complaining of right foot pain, pulses are intact, pink skin, capillary refill <.03, pt feels she slept wrong and hurt her foot. Hard to walk on it.
--- NOTE | 2020-05-21 18:52 | NUR ---
Patient in room [facility]. I have received report from Pat RN and had the opportunity to ask questions and assume patient care.
[2020-05-21 19:30] VITALS: BP 162/83
--- NOTE | 2020-05-21 19:30 | NUR ---
pt states she feels like she was once told she had plantar faciatitis; states she does wear flip flops Addendum: 05/22/20 at 0102 by Lori Yadav RN Amended: Links added.
--- NOTE | 2020-05-21 19:30 | NUR ---
pt aware to call for assistance when using the bedside commode Addendum: 05/22/20 at 0102 by Lori Yadav RN Amended: Links added.
[2020-05-21] MEDS: sennosides 8.6mg tablet PO SCH (20:28)
[2020-05-21] MEDS: acetaminophen 325mg tablet PO PRN (22:00)
[2020-05-22] VITALS: BP 146/64
[2020-05-22 05:59] LABS: ALANINE AMINOTRANSFERASE 50 U/L (12-78); ALBUMIN 2.9 G/DL (3.4-5.0); ALBUMIN/GLOBULIN RATIO 0.7 (1.1-1.5); ALKALINE PHOSPHATASE 84 IU/L (46-116); ANION GAP 5 (8-16); ASPARTATE AMINO TRANSFERASE 32 U/L (10-37); BILIRUBIN,TOTAL 0.5 MG/DL (0.1-1.0); BLOOD UREA NITROGEN 11 MG/DL (7-18); BUN/CREATININE RATIO 15.5 (6.6-38.0); CALCIUM 9.4 MG/DL (8.5-10.1); CHLORIDE 106 MMOL/L (99-107); CREATININE 0.71 MG/DL (0.40-0.90); GLUCOSE 108 MG/DL (70-104); POTASSIUM 3.7 MMOL/L (3.5-5.1); SODIUM 141 MMOL/L (135-145); TOTAL CARBON DIOXIDE 29.6 MMOL/L (24-32); TOTAL PROTEIN 6.8 G/DL (6.4-8.2); eGFR 83 ML/MIN
--- NOTE | 2020-05-22 06:31 | NUR ---
Patient in room [facility]. I have received report from Pat RN and had the opportunity to ask questions and assume patient care.
[2020-05-22 07:18] VITALS: BP 148/90
[2020-05-22] MEDS: CefTRIAXone 2gm/D5W 50ml BAG 50 ML IV SCH (07:49)
[2020-05-22] MEDS: lactobacillus rhamnosus 10,000 MMU CELLS/CAPSULE PO SCH (07:49)
[2020-05-22] MEDS: acetaminophen 325mg tablet PO PRN (07:50)
[2020-05-22 08:34] LABS: BASOPHILS # (AUTO) 0.1 X10'3 (0-0.2); BASOPHILS % (AUTO) 0.7 % (0-1); EOSINOPHILS # (AUTO) 0.3 X10'3 (0-0.9); HEMATOCRIT 34.9 % (35.0-45.0); HEMOGLOBIN 11.7 g/dl (12.0-16.0); LYMPHOCYTES # (AUTO) 1.4 X10'3 (1.1-4.8); MEAN CORPUSCULAR HEMOGLOBIN 28.2 PG (27.0-31.0); MEAN CORPUSCULAR HGB CONC 33.6 g/dL (33.0-36.5); MEAN CORPUSCULAR VOLUME 83.9 FL (78-98); MEAN PLATELET VOLUME 7.4 FL (7.4-10.4); MONOCYTES # (AUTO) 0.7 X10'3 (0-0.9); MONOCYTES % (AUTO) 8.2 % (2-12); NEUTROPHILS # (AUTO) 5.5 X10'3 (1.8-7.7); NEUTROPHILS % (AUTO) 69.1 % (42-75); PLATELET COUNT 322 X10'3 (140-440); RED BLOOD COUNT 4.17 X10'6 (4.20-5.60); RED CELL DISTRIBUTION WIDTH 13.2 % (11.5-14.5)
[2020-05-22] MEDS: VANCOmycin 1250MG/NS 250ml Bag 250 ML IV SCH (11:51)
[2020-05-22 12:00] VITALS: BP 151/92
[2020-05-22] MEDS: ibuprofen 200mg tablet PO PRN (14:20)
--- NOTE | 2020-05-22 17:00 | NUR ---
Pt Dc to home with . pt is A & O x4, in no apparent distress. Pt educated by Dr Menjivar regarding cleaning her external hardware. Pt reviewed and spoke to [facility] directly about her outpatient IV treatment. Pt aware and got all of her appointments schedule. Pt will also get HH to come out and assist her with treatment. Since HH was not able to schedule an appointment right aware, pt got an appointment to go to wound care on Thursday 05/24 at 0830 for care. Pt given her DC orders and phone numbers to call schedule followup appointments. Pt's went home with a PICC two lumen on her right upper arm. Pt verbalizes understanding of all DC orders and is able to teach back details. Pt got her medications from pharmacy, belongings were packed and she was wheeled downstairs to the lobby where her pick her up.
--- NOTE | 2020-05-23 15:31 | NUR ---
CASE MANAGEMENT DISCHARGE FOLLOW UP: Spoke with pt via telephone at this time. Pt reports that she is doing okay. States pain is 4/10 and well managed with pain medication. States that the swelling in her hand is going, states that her hand was swollen prior to discharge. Denies fever, s/sx of infection. Verbalizes understanding of new prescriptions. Verbalizes compliance with MD discharge orders. Verbalizes understanding of s/sx requiring further evaluation. Verbalizes understanding to make/keep follow up appointment with PCP as instructed by MD. Has f/u appt with Dr Menjivar set up. Has left a message with Dr. Apodaca's office to schedule a follow-up appointment. Pt states that here was some non-purulent drainage from surgical site that she placed a bandage over in the meantime as she has an appointment with the wound clinic in the morning (05/24/2020). Upon inquiry, pt denies further questions at this time.
== END 2020-05-22 17:01 | disposition home or self-care (01) | DRG 493 ==
LOC: UNDOADMIN 09:04 → PAS IN 09:04 → SUR 3N 14:17 → PACU 05-18 12:59 → SUR 3N 05-18 17:44 → PACU 05-18 17:44
PROVIDERS: ADMIT Orthopaedic Surgery; ATTEND Orthopaedic Surgery
PROC: 0KB80ZZ Excision of Left Upper Arm Muscle, Open Approach (ICD-10-PCS; 2020-05-16)
PROC: 0PC Upper Bones, Extirpation (ICD-10-PCS; principal; 2020-05-16 10:15)
DX: M86.122 Other acute osteomyelitis, left humerus (principal); M84.622 Pathological fracture in other disease, left humerus; Z20.828 Contact with and (suspected) exposure to other viral communicable diseases; Z79.899 Other long term (current) drug therapy
CPT/HCPCS: 36573; Z7506; Z7508; 36415; 73060; 73610; 73630; 76000; 80053; 80202; 82948; 85025; 85651; 86140; 87070; 87075; 87081; 87635; A4565; A4618; A6222; A6449; A6550; A7000; C1713; G0378; J0131; J0690; J0696; J0735; J1100; J1885; J2001; J2175; J2250; J2270; J2405; J2704; J2710; J2795; J3010; J3370; J3480; J3490; J7120

== ENCOUNTER 2020-05-24 08:29 | Outpatient (CLI) | payer BC | END 2020-05-24 23:59 | disposition home or self-care (01) | LOC: WOUND CARE 08:29 | PROVIDERS: ATTEND Nurse Practitioner | DX: T81.89XA Other complications of procedures, not elsewhere classified, initial encounter (principal); S41.102A Unspecified open wound of left upper arm, initial encounter; M86.142 Other acute osteomyelitis, left hand; Z79.899 Other long term (current) drug therapy; X58.XXXA Exposure to other specified factors, initial encounter; Y93.89 Activity, other specified; Y92.89 Other specified places as the place of occurrence of the external cause; Y99.8 Other external cause status; Y83.8 Other surgical procedures as the cause of abnormal reaction of the patient, or of later complication, without mention of misadventure at the time of the procedure | CPT/HCPCS: G0463 ==